=== PATIENT | male | born 2000 | race Caucasian/White ===

== ENCOUNTER 2019-07-13 10:30 | Outpatient (REF) | payer MEDICAID, SELFPAY ==
[2019-07-13 19:52] LABS: Abs Immature Grans 0.02 k/cumm (0.0-0.09); Absolute Basophil Count 0.04 k/cumm (0.0-0.2); Absolute Eosinophil Count 0.11 k/cumm (0.0-0.7); Absolute Lymphocyte Count 1.62 k/cumm (1.2-3.4); Absolute Monocyte Count 0.69 k/cumm (0.11-0.7); Absolute Neutrophil Count 3.67 k/cumm (1.2-6.7); Basophils % 0.7; Eosinophils % 1.8; HCT 47.3 % (40.0-50.0); HGB 15.8 g/dL (13.5-17.5); Immature Grans % 0.3 %; Lymphocytes % 26.3; Mean Corp. HGB Concentration 33.4 g/dL (32.0-36.0); Mean Corpuscular Hemoglobin 28.9 pg (27.0-33.0); Mean Corpuscular Volume 86.6 fL (80-95); Mean Platelet Volume 10.2 fL (8.0-11.0); Monocytes % 11.2; Neutrophils % 59.7; Platelet Count 370 x1000/uL (130-400); RBC 5.46 m/cumm (4.50-6.00); RBC Distribution Width 13.3 % (11.8-14.1); White Blood Cell Count 6.15 k/cumm (4.4-10.8)
[2019-07-13 20:06] LABS: Iron 91 ug/dL (65-175); Total Iron Binding Capacity 265 ug/dL (250-450); Transferrin Sat 34 % (20-55)
[2019-07-13 20:18] LABS: ALT 70 U/L (16-63); AST 31 U/L (15-37); Alkaline Phosphatase 105 U/L (46-116); BUN 13 mg/dL (7-18); Bilirubin, Total 0.5 mg/dL (0.2-1.0); Calcium 9.2 mg/dL (8.5-10.1); Calculated LDL 91 mg/dL; Chloride 103 mmol/L (98-107); Cholesterol 169 mg/dL (<200); Ferritin 313 ng/mL (26-388); Glucose 89 mg/dL (74-106); HDL Cholesterol 40 mg/dL (40-60); Magnesium 1.7 mg/dL (1.8-2.4); Potassium 4.3 mmol/L (3.5-5.1); Sodium 141 mmol/L (136-145); TSH (W/Ref FT4) 3.23 uIU/mL (0.36-3.74); Total Protein 8.1 g/dL (6.4-8.2); Triglyceride 193 mg/dL (<150)
[2019-07-16 06:18] LABS: Vitamin D 25 Total 16.9 ng/ml (30-100)
== END 2019-07-13 10:50 ==
LOC: NCHCN 10:30
PROVIDERS: PCP Physician Assistant; Visit Provider Physician Assistant
DX: R25.2 Cramp and spasm (principal); G47.00 Insomnia, unspecified; J32.9 Chronic sinusitis, unspecified; Z00.00 Encounter for general adult medical examination without abnormal findings
CPT/HCPCS: 80053; 80061; 82306; 82728; 83540; 83550; 83735; 84443; 85025

== ENCOUNTER 2022-09-17 17:02 | Outpatient (REF) | payer MEDICAID, SELFPAY ==
[2022-09-20 12:42] LABS: Chlamydia Result Negative (Negative); GC Result Negative (Negative)
== END 2022-09-17 17:03 | disposition home or self-care (01) ==
LOC: NCHCN 17:02
PROVIDERS: PCP Physician Assistant; Visit Provider Physician Assistant
DX: N50.812 Left testicular pain (principal)
CPT/HCPCS: 87491; 87591